=== PATIENT | female | born 1965 | race Caucasian/White ===

== ENCOUNTER 2018-07-30 00:36 | Outpatient (CLI) | payer BC, SELFPAY ==
--- NOTE | 2018-07-30 14:00 | DI.MAMMO_ITS ---
SYMPTOMS/DIAGNOSIS: SCREENING, Z12.31 MAMMOGRAMS: Mammograms were interpreted according to the usual protocol including computer analysis with CAD system, tomosynthesis and C view imaging. Comparison is with the prior examinations. No suspicious masses or microcalcifications are seen. There is no definite evidence of malignancy. IMPRESSION: Negative mammogram. Routine screening is recommended. Category 1, breast density B. MQSA ASSESSMENT OF FINDINGS: Negative. Category 1. Patient will receive a letter notifying them of these results. BI-RADS category B. There are scattered areas of fibroglandular density.
[2018-07-30 17:25] LABS: Cholesterol 219 mg/dL (50-200); HDL Cholesterol 84 mg/dL (40-60); LDL CHOLESTEROL 119 mg/dL (<100); Triglyceride 87 mg/dL (30-150)
== END 2018-07-30 00:56 ==
PROVIDERS: PCP Family Medicine; Visit Provider Family Medicine
DX: Z00.00 Encounter for general adult medical examination without abnormal findings (principal); Z12.31 Encounter for screening mammogram for malignant neoplasm of breast; E03.9 Hypothyroidism, unspecified
CPT/HCPCS: 36415; 77063; 77067; 80061; 83721; 84443

== ENCOUNTER 2019-07-14 13:45 | Outpatient (CLI) | payer BC, SELFPAY ==
[2019-07-14 19:03] LABS: TSH (W/Ref FT4) 3.71 uIU/mL (0.36-3.74)
== END 2019-07-14 14:05 ==
PROVIDERS: PCP Family Medicine; Visit Provider Family Medicine
DX: E03.9 Hypothyroidism, unspecified (principal)
CPT/HCPCS: 36415; 84443

== ENCOUNTER 2020-01-21 00:46 | Outpatient (CLI) | payer BC, SELFPAY ==
--- NOTE | 2020-01-21 06:45 | DI.MAMMO_ITS ---
EXAM: MAMMO SCREENING CLINICAL HISTORY: screening,Z12.39 TECHNIQUE: Mammograms were interpreted according to the usual protocol including computer analysis w [employer] system, tomosynthesis and C-view imaging. COMPARISON: FINDINGS: The breasts are moderate density with fairly symmetrical distribution of tissue. No dominant mass or clumped microcalcification is identified in either breast. A 12 millimeter well-circumscribed upper -outer quadrant right breast nodule is again noted, unchanged from multiple prior examinations includ ing July 2018.. No other significant change seen. IMPRESSION: No specific evidence of malignancy at this time. Routine screening examinations are suggested yearly intervals in this age group according to the ACS ACR guidelines. BI-RADS Category 1 - Negative Breast Density - Category B - Scattered areas of fibroglandular density
== END 2020-01-21 01:06 ==
PROVIDERS: PCP Family Medicine; Visit Provider Family Medicine
DX: Z12.31 Encounter for screening mammogram for malignant neoplasm of breast (principal); N63.11 Unspecified lump in the right breast, upper outer quadrant
CPT/HCPCS: 77063; 77067

== ENCOUNTER 2020-01-30 01:23 | Outpatient (CLI) | payer BC, SELFPAY ==
[2020-01-30 13:14] LABS: TSH (W/Ref FT4) 3.19 uIU/mL (0.36-3.74); Vitamin B12 346 pg/mL (193-986)
== END 2020-01-30 01:43 ==
PROVIDERS: PCP Family Medicine; Visit Provider Family Medicine
DX: E03.9 Hypothyroidism, unspecified (principal); Z00.00 Encounter for general adult medical examination without abnormal findings
CPT/HCPCS: 36415; 82607; 84443